=== PATIENT | female | born 1980 | race Two or more races ===

== ENCOUNTER → 2023-12-13 15:33 | Outpatient (REF) | payer OTHER, SELFPAY | LOC: HWWDC 15:33 | PROVIDERS: ATTENDING PHYSICIAN Nurse Practitioner Adult Health | DX: Z12.31 Encounter for screening mammogram for malignant neoplasm of breast (principal) | CPT/HCPCS: 77063; 77067 ==

== ENCOUNTER → 2025-01-24 11:10 | Outpatient (REF) | payer OTHER, SELFPAY | LOC: HWWDC 11:10 | PROVIDERS: ATTENDING PHYSICIAN Nurse Practitioner Adult Health | DX: Z12.31 Encounter for screening mammogram for malignant neoplasm of breast (principal) | CPT/HCPCS: 77063; 77067 ==